=== PATIENT | female | born 1965 | race Caucasian/White ===

== ENCOUNTER 2018-04-09 05:26 | Emergency (ER) | payer OTHER, SELFPAY ==
[2018-04-09 05:27] VITALS: BP 148/85; PULSE 121; RESP 16; TEMP 36.9; O2SAT 98; BMI 24.5
--- NOTE | 2018-04-09 05:32 | ED.VISSUMM ---
- ER Visit Summary Date of Service: 04/09/18 Chief Complaint: Atraumatic right foot pain History of Present Illness: The patient is a 52 F with no significant past medical history presents with atraumatic dorsal lateral mid right foot pain that is worse with dorsiflexion of her toes and inversion of her ankle. She denies paresthesia, anesthesia buttocks. She states she has taken nothing for the pain. Physical Examination: There is no swelling of the right foot compared to left. There is no pain the patient in the lateral medial malleolus. There is no laxity with drawer testing. DP and PT pulses are palpable. Passive dorsi and plantarflexion of the toes causes no discomfort. Active movement causes her discomfort and especially inversion of the ankle. There is no point tenderness. There is no soft tissue swelling, ecchymosis or evidence of contusion. Test Results: None Emergency Department Course and Treatment: Patient was informed the purpose of x-rays to rule out fracture. There is no history of trauma and there is no evidence of trauma x-rays are not indicated/warranted. Informed her since movement causes pain this is most likely a strain of her ligaments and treatment is an anti-inflammatory unless she has contraindication, which she does not. Treatment Plan: NSAID Disposition: Discharged home Impression: Atraumatic right foot pain/strain This note was generated with [employer] dictation software. It may contain incorrect words, spelling, and punctuation that were not noted in review of the chart prior to signing ED Disposition - Plan for ED Patient: Disposition: Home or Assisted Living Chief Complaint: Lower Extremity Injury Instructions: ED Sprain Foot Referrals: Ariadna Bloom [Primary Care Provider] - 1 Week if not improving Additional Instructions: Take either 4 Advil every 8 hours for the next 3-5 days or 2 Aleve every 12 hours for the next 3-5 days. If there is no improvement follow-up with Ariadna Bloom
--- NOTE | 2018-04-09 05:36 | ED.DCSUM_ITS ---
- ER Visit Summary Date of Service: 04/09/18 Chief Complaint: Atraumatic right foot pain History of Present Illness: The patient is a 52 F with no significant past medical history presents with atraumatic dorsal lateral mid right foot pain that is worse with dorsiflexion of her toes and inversion of her ankle. She denies paresthesia, anesthesia buttocks. She states she has taken nothing for the pain. Physical Examination: There is no swelling of the right foot compared to left. There is no pain the patient in the lateral medial malleolus. There is no laxity with drawer testing. DP and PT pulses are palpable. Passive dorsi and plantarflexion of the toes causes no discomfort. Active movement causes her discomfort and especially inversion of the ankle. There is no point tenderness. There is no soft tissue swelling, ecchymosis or evidence of contusion. Test Results: None Emergency Department Course and Treatment: Patient was informed the purpose of x -rays to rule out fracture. There is no history of trauma and there is no evidence of trauma x-rays are not indicated/warranted. Informed her since movement causes pain this is most likely a strain of her ligaments and treatment is an anti-inflammatory unless she has contraindication, which she does not. Treatment Plan: NSAID Disposition: Discharged home Impression: Atraumatic right foot pain/strain This note was generated with [employer] dictation software. It may contain incorrect words, spelling, and punctuation that were not noted in review of the chart prior to signing ED Disposition - Plan for ED Patient: Disposition: Home or Assisted Living Chief Complaint: Lower Extremity Injury Instructions: ED Sprain Foot Referrals: Ariadna Bloom [Primary Care Provider] - 1 Week if not improving Additional Instructions: Take either 4 Advil every 8 hours for the next 3-5 days or 2 Aleve every 12 hours for the next 3-5 days. If there is no improvement follow-up with Ariadna Bloom
[2018-04-09] MEDS: Naproxen 500 MG Tablet PO (05:39)
== END 2018-04-09 06:00 | disposition home or self-care (01) ==
LOC: ED 05:42
PROVIDERS: Emergency Provider Emergency Medicine; Family Provider Nurse Practitioner; PCP Nurse Practitioner
DX: S93.601A Unspecified sprain of right foot, initial encounter (principal); X58.XXXA Exposure to other specified factors, initial encounter; Y93.9 Activity, unspecified; Y92.9 Unspecified place or not applicable
CPT/HCPCS: 99283